=== PATIENT | male | born 1970 | race Caucasian/White ===

== ENCOUNTER 2019-05-06 21:26 | Emergency (ER) | payer OTHER ==
--- NOTE | 2019-05-06 21:48 | ED ---
Adult Trauma - HPI Summary HPI Summary: This patient is a 48 year old male presenting to [facility] with a chief complaint of adult trauma. The patient reports he was unloading a truck when a pallet fell off the truck, pinning the him against the wall, resulting in L sided rib and back pain. He rates his pain 7/10 in severity. - History of Current Complaint Chief Complaint: EDChestWallPain Stated Complaint: LT RIB INJURY PER PT Time Seen by Provider: 05/06/19 21:45 Hx Obtained From: Patient Mechanism of Injury: Blunt Trauma Onset/Duration: Started Hours Ago Onset of Pain: Hours Onset Severity: Moderate Current Severity: Moderate Pain Intensity: 7 Pain Scale Used: 0-10 Numeric - Allergy/Home Medications Allergies/Adverse Reactions: Allergies Allergy/AdvReac Type Severity Reaction Status Date / Time No Known Allergies Allergy Verified 05/06/19 21:29 PMH/Surg Hx/FS Hx/Imm Hx Endocrine/Hematology History: Denies: Hx Diabetes Respiratory History: Denies: Hx Chronic Obstructive Pulmonary Disease (COPD) Infectious Disease History: No Infectious Disease History: Denies: Traveled Outside the [place] in Last 30 Days - Family History Known Family History: Positive: Non-Contributory - Social History Alcohol Use: None Hx Substance Use: No Smoking Status (MU): Former Smoker Review of Systems Negative: Fever Positive: Chest Pain - Chest Wall/Rib pain Positive: Other - Back pain All Other Systems Reviewed And Are Negative: Yes Physical Exam - Summary Physical Exam Summary: Appearance: Well appearing, no pain distress Skin: warm, dry, reflects adequate perfusion Head/face: normal Eyes: EOMI, ALEXANDER ENT: normal Neck: supple, non-tender Respiratory: CTA, breath sounds present Cardiovascular: RRR, pulses symmetrical Abdomen: Tenderness over the LUQ, soft Musculoskeletal: normal, strength/ROM intact. Tenderness over the left chest wall. Neuro: normal, sensory motor intact, A&Ox3 Triage Information Reviewed: Yes Vital Signs On Initial Exam: Initial Vitals Temp Pulse Resp BP Pulse Ox 99.1 F 74 16 167/103 100 05/06/19 21:27 05/06/19 21:27 05/06/19 21:27 05/06/19 21:27 05/06/19 21:27 Vital Signs Reviewed: Yes Diagnostics - Vital Signs Vital Signs Temp Pulse Resp BP Pulse Ox 05/06/19 21:27 99.1 F 74 16 167/103 100 - Laboratory Result Diagrams: 05/06/19 22:05 05/06/19 22:05 Lab Statement: Any lab studies that have been ordered have been reviewed, and results considered in the medical decision making process. - CT Chest/Abdomen/Pelvis CT Interpretation Completed By: Radiologist Summary of CT Findings: 1. No acute abnormality in the chest. 2. 3 mm left lower lobe nodule, likely a small lymph node. Per [employer] Criteria, if the patient has no risk factors such as smoking or cancer, no further workup is indicated. If they do have risk factors for cancer, followup CT is sugggested in one year to assess stability. No acute findings in the abdomen or pelvis. ED Provider has reviewed this report. Adult Trauma Course/Dx - Course Course Of Treatment: This patient is a 48 year old male presenting to [facility] with a chief complaint of adult trauma. CT Chest/Abd/Pel were unremarkable for internal trauma. A plan for discharge was discussed with the patient and he was agreeable with this plan. - Diagnoses Differential Diagnosis/HQI/PQRI: Positive: Contusion(s), Fracture Provider Diagnoses: Chest wall contusion Discharge - Sign-Out/Discharge Documenting (check all that apply): Patient Departure - Discharge Patient Received Moderate/Deep Sedation with Procedure: No - Discharge Plan Condition: Stable Disposition: HOME Prescriptions: Ibuprofen TAB* [Motrin TAB* 600 MG] 600 mg PO Q8H PRN #20 tab MDD 3 PRN Reason: Pain - Mild Patient Education Materials: Chest Wall Pain (ED) Forms: *Work Release Referrals: No Primary Care Phys,NOPCP [Primary Care Provider] - Additional Instructions: Return to ED with any new or worsening symptoms. - Billing Disposition and Condition Condition: STABLE Disposition: Home - Attestation Statements Document Initiated by Scribe: Yes Documenting Scribe: Gilbert Dominguez Provider For Whom Latisha is Documenting (Include Credential): Slava Roy MD Scribe Attestation: Gilbert Kamara scribed for Slava Roy MD on 05/07/19 at 0019. Scribe Documentation Reviewed: Yes Provider Attestation: The documentation as recorded by the Gilbert rahman accurately reflects the service I personally performed and the decisions made by , Slava Roy MD Status of Scribe Document: Viewed
[2019-05-06] MEDS ORDERED: NS 0.9% 1000 ML** 1,000 ML IV SCH (22:00)
[2019-05-06 22:10] LABS: ABS Basophils 0.1 10^3/ul (0-0.2); ABS Eosinophils 0.2 10^3/ul (0-0.6); ABS Lymphocytes 1.9 10^3/ul (1.0-4.8); ABS Monocytes 0.7 10^3/ul (0-0.8); ABS Neutrophils 4.1 10^3/ul (1.5-7.7); Eosinophil % 2.7 %; Hematocrit 42 % (42-52); Hemoglobin 15.1 g/dL (14.0-18.0); Lymphocyte % 27.6 %; Mean Corpuscular HGB Conc 36 g/dL (31-36); Mean Corpuscular Hemoglobin 30 pg (27-31); Mean Corpuscular Volume 85 fL (80-94); Mean Platelet Volume 8.7 fL (7.4-10.4); Nucleated Red Blood Cells % 0.1; Platelet Count 224 10^3/uL (150-450); Red Blood Count 4.99 10^6 /uL (4.18-5.48); Red Cell Distribution Width 13 % (10-15); White Blood Count 6.9 10^3/uL (3.5-10.8)
[2019-05-06 22:22] LABS: Activated Partial Thrombo Time 37.3 seconds (26.0-38.0); INR 0.98 (0.82-1.09)
[2019-05-06 22:27] LABS: Albumin 3.9 g/dL (3.2-5.2); Albumin/Globulin Ratio 1.4 (1-3); BUN/Creatinine Ratio 15.7 (8-20); EGFR African American 68.6 (>60); EGFR Non-African American 56.7 (>60); Globulin 2.8 g/dL (2-4); Total Bilirubin 0.4 mg/dL (0.2-1.0); Total Protein 6.7 g/dL (6.4-8.9)
[2019-05-06 22:31] LABS: Potassium 4.7 mmol/L (3.5-5.0)
[2019-05-06] MEDS ORDERED: Iodixanol* (CONTRAST) 320 MG/ML 100 ML SDV IV ONE (22:47)
[2019-05-07] MEDS ORDERED: Ketorolac INJ* 30 MG/ML 1 ML VIAL IV ONE (00:02)
[2019-05-07 00:28] VITALS: BP 138/95
== END 2019-05-07 00:25 | disposition home or self-care (01) ==
LOC: ED 21:26
DX: S20.219A Contusion of unspecified front wall of thorax, initial encounter (principal); W23.1XXA Caught, crushed, jammed, or pinched between stationary objects, initial encounter; Y92.9 Unspecified place or not applicable; Z87.891 Personal history of nicotine dependence; R91.1 Solitary pulmonary nodule
CPT/HCPCS: 36415; 71260; 74177; 80053; 83690; 84484; 85025; 85610; 85730; 93005; 96361; 96374; 99283; J1885; Q9967